=== PATIENT | female | born 1950 | race Hispanic/Latino ===

== ENCOUNTER 2017-02-24 13:04 | Day surgery (SDC) | payer MEDICARE ==
[2017-02-23 09:10] VITALS: BMI 22.3
[2017-02-24] MEDS ORDERED: Lidocaine 2% Inj (20ml) ONE (13:29)
[2017-02-24] MEDS ORDERED: Midazolam 2 MG/2 ML VIAL ONE ×2 (13:30→14:58)
[2017-02-24 13:39] LABS: BASO # 0.03 K/mm3 (0.0-2.0); BASO % 0.7 % (0.0-3.0); EOS # 0.1 (0.0-0.7); EOS % 3.2 % (1.5-5.0); GRAN # 2.28 (1.4-6.5); HEMOGLOBIN 13.1 g/dL (12.0-16.0); LYMPH # 1.2 (1.2-3.4); LYMPH % 30.4 % (22.0-35.0); MEAN CELL VOLUME 87.7 fl (80.0-105.0); MEAN CORPUSCULAR HEMOGLOBIN 29.8 pg (25.0-35.0); MEAN CORPUSCULAR HGB CONC 33.9 g/dl (31.0-37.0); MEAN PLATELET VOLUME 9.2 fl (7.0-11.0); MONO # 0.4 (0.1-0.6); MONO % 8.7 % (1.0-6.0); PLATELET COUNT 294 10^3/uL (120.0-450.0)
[2017-02-24 13:50] LABS: INR 0.96 (0.93-1.08); PARTIAL THROMBOPLASTIN TIME 24.8 Seconds (23.7-30.8); PROTHROMBIN TIME 10.4 Seconds (9.9-11.8)
[2017-02-24 13:53] LABS: BLOOD UREA NITROGEN 16 mg/dL (7-21); CALCIUM 9.7 mg/dL (8.4-10.5); GFR AFRICAN-AMERICAN > 60; GFR NON-AFRICAN AMERICAN > 60
[2017-02-24 14:18] VITALS: O2SAT 100
--- NOTE | 2017-02-24 14:38 | CP.SDSHP ---
Same Day Surgery H & P - History Proposed Procedure: Insertion of venous port Pre-Op Diagnosis: Breast Ca - Previous Medical/Surgical History Misc: Other (L breast ca,diagnosed in October this year) Pain: 0. No Pain (Pain in the L breast is described as a soreness,on a scale of 1 to 10 it is a 2.) Previous Surgical History: Colonoscopy. L breast biopsy. L breast lumpectomy. Lymph node dissection. Hysterectomy(Endometriosis/Fibroids)1996 - Allergies Allergies: Allergies No Known Allergies Allergy (Verified 02/23/17 09:10) - Physical Exam General Appearance: Thin built female Vital Signs: Vital Signs 02/24/17 13:30 Temperature 98.8 F Pulse Rate 59 L Respiratory 18 Rate Blood Pressure 121/66 O2 Sat by Pulse 100 Oximetry Mental Status: Alert & Oriented x3 Neuro: WNL Heart: WNL Lungs: WNL - {Optional Preform as Required} Breast: Other (Surgical scar noted on the L breast .Minmal tenderness noted on palpation.No axillary adenopathy.) Abdomen: WNL - Impression Impression: Breast Ca Short Stay Discharge - Short Stay Discharge Admitting Diagnosis/Reason for Visit: BREAST CA Disposition: HOME/ ROUTINE Referrals: Louis Rosales MD [Primary Care Provider] -
[2017-02-24] MEDS ORDERED: Oxycodone/Acetaminophen 5/325 mg Tab PO PRN (16:18)
[2017-02-24] MEDS ORDERED: Sodium Chloride 0.45% 1,000 ML IV SCH (16:30)
[2017-02-24 17:16] VITALS: BP 122/77; PULSE 56; RESP 20; TEMP 97.9
--- NOTE | 2017-02-24 20:12 | VASCULAR ---
PROCEDURE: Ultrasound and fluoroscopic right internal jugular venous access port. CLINICAL HISTORY: Breast carcinoma.Venous port for chemotherapy. PHYSICIAN(S): Sixto Andino M.D. TECHNIQUE: The relative risks and indications of the procedure were explained to the patient and consent obtained. The patient was placed supine on the arteriogram table and the right neck and chest prepped and draped in the usual sterile fashion. Conscious sedation monitoring was provided throughout the procedure by a nurse. Antibiotics were given prior to the procedure. Under direct ultrasound guidance, the right internal jugular vein was punctured with a micro-puncture set. A 0.035 angled Glidewire was advanced into the IVC. A 4 cm incision was made below the right clavicle and the pocket blunted dissected. A 8 Dutch single-lumen catheter, 23 cm long, was advanced to the SVC/RA junction. The catheter was trimmed and attached to the port. The port aspirates and injects easily. The port was placed in the pocket and closed in 2 layers. The patient tolerated the procedure well. IMPRESSION: Ultrasound and fluoroscopically placed right internal jugular venous access port.
== END 2017-02-24 18:25 | disposition home or self-care (01) ==
LOC: SDSVAS 13:04
PROVIDERS: ATTEND Radiology Vascular & Interventional Radiology
DX: C50.912 Malignant neoplasm of unspecified site of left female breast (principal)
CPT/HCPCS: 36415; 36561; 76937; 77001; 80048; 85025; 85610; 85730; 99152; 99153; C1769; C1788; J0690; J1644; J2250; J2405; J3010; J7030

== ENCOUNTER 2017-09-01 09:50 | Day surgery (SDC) | payer MEDICARE ==
[2017-09-01 09:51] VITALS: BMI 23.0
[2017-09-01 10:40] VITALS: RESP 18
[2017-09-01 10:40] LABS: BASO # 0.02 K/mm3 (0.0-2.0); BASO % 0.4 % (0.0-3.0); EOS # 0.3 (0.0-0.7); EOS % 5.4 % (1.5-5.0); GRAN # 3.02 (1.4-6.5); GRAN % 65.3 % (50.0-68.0); HEMOGLOBIN 11.4 g/dL (12.0-16.0); LYMPH % 20.7 % (22.0-35.0); MEAN CELL VOLUME 90.1 fl (80.0-105.0); MEAN CORPUSCULAR HEMOGLOBIN 28.9 pg (25.0-35.0); MEAN CORPUSCULAR HGB CONC 32.1 g/dl (31.0-37.0); MEAN PLATELET VOLUME 8.8 fl (7.0-11.0); MONO # 0.4 (0.1-0.6); MONO % 8.2 % (1.0-6.0); RBC 3.94 10^6/uL (3.5-6.1); RED CELL DISTRIBUTION WIDTH 14.3 % (11.5-14.5); WHITE BLOOD COUNT 4.6 10^3/ul (4.5-11.0)
[2017-09-01 10:47] LABS: INR 0.94 (0.93-1.08); PARTIAL THROMBOPLASTIN TIME 27.7 Seconds (25.1-36.5); PROTHROMBIN TIME 10.8 SECONDS (9.4-12.5)
[2017-09-01 10:50] LABS: ALB/GLOB RATIO 1.5 (1.1-1.8); ALT/SGPT 45 U/L (7-56); AST/SGOT 36 U/L (14-36); BLOOD UREA NITROGEN 17 mg/dL (7-21); CALCIUM 9.3 mg/dL (8.4-10.5); GFR AFRICAN-AMERICAN > 60; GFR NON-AFRICAN AMERICAN > 60
[2017-09-01] MEDS ORDERED: Lidocaine 2% Inj (20ml) ONE (13:23)
[2017-09-01] MEDS ORDERED: Midazolam 2 MG/2 ML VIAL ONE (13:23)
[2017-09-01] MEDS ORDERED: HEPARIN SODIUM/NS 1,000 ML IV ONE (13:24)
[2017-09-01] MEDS ORDERED: Oxycodone/Acetaminophen 5/325 mg Tab PO PRN (14:28)
[2017-09-01] MEDS ORDERED: Sodium Chloride 0.45% 1,000 ML IV SCH (14:30)
[2017-09-01 15:28] VITALS: BP 113/76; PULSE 80; TEMP 98.8; O2SAT 98
--- NOTE | 2017-09-01 17:30 | VASCULAR ---
PROCEDURE: Removal of tunneled right internal jugular venous access port. CLINICAL HISTORY: Breast carcinoma. Completed chemotherapy. PHYSICIAN(S): Sixto Andino M.D. TECHNIQUE: The relative risks and indications of the procedure were explained to the patient and consent obtained. The patient was placed supine on the arteriogram table and the right neck and chest prepped and draped usual sterile fashion. Conscious sedation and monitoring were provided throughout the procedure by a nurse. 1% Xylocaine was used to anesthetize the skin and soft tissues at the port. A 4 cm incision was made. The port was bluntly dissected and removed. The catheter was removed under fluoroscopic guidance. No retained catheter fragments were seen. The pocket was lavaged with normal saline. The pocket was closed in 2 layers. The patient tolerated the procedure well. IMPRESSION: 1. Removal of tunneled right internal jugular venous access port.
== END 2017-09-01 15:45 | disposition home or self-care (01) ==
LOC: SDS 09:50
PROVIDERS: ATTEND Radiology Vascular & Interventional Radiology
DX: Z45.2 Encounter for adjustment and management of vascular access device (principal); Z85.3 Personal history of malignant neoplasm of breast; Z92.21 Personal history of antineoplastic chemotherapy
CPT/HCPCS: 36415; 36590; 80053; 85025; 85610; 85730; 99152; J1644; J2250; J2405; J3010; J7030 ×2